=== PATIENT | male | born 1950 | race Two or more races ===

== ENCOUNTER 2017-02-25 01:30 | Emergency (ER) | payer OTHER ==
[~2017-02-25] VITALS: Ht 157.5 cm; Wt 66.2 kg
[2017-02-25 01:43] VITALS: BP 143/76
--- NOTE | 2017-02-25 02:04 | Emergency Room Report ---
History of Present Illness General Chief Complaint: Pain Source: Patient Present Illness HPI Patient present with complaints of pain to the left knee reports that on Friday after work he noticed some discomfort to the knee Next date is when he noticed more pain Initially there is report of pain with movement and bearing weight However during the examination while the patient has leg in neutral position he has episodes of acute pain Denies any fall or trauma Patient works in maintenance Denies any fevers or chills reports that he had some meniscal discomfort in the knee 3 years ago which has resolved a long time ago Allergies: Coded Allergies: No Known Allergies (Unverified , 02/25/17) Patient History Past Medical History: see triage record Pertinent Family History: none Reviewed Nursing Documentation: PMH: Agreed, PSxH: Agreed Nursing Documentation-PMH Hx Hypertension: Yes Hx Diabetes: Yes Review of Systems All Other Systems: negative except mentioned in HPI Physical Exam Vital Signs Date Time Temp Pulse Resp B/P (MAP) Pulse Ox O2 Delivery O2 Flow Rate FiO2 02/25/17 01:35 97.9 68 20 143/76 99 Room Air Sp02 EP Interpretation: reviewed, normal General Appearance: well appearing, no apparent distress Head: normocephalic, atraumatic Eyes: bilateral eye PERRL, bilateral eye EOMI ENT: hearing grossly normal, normal pharynx, TMs + canals normal, uvula midline Neck: full range of motion, supple, no meningismus, no bony tend Respiratory: lungs clear, normal breath sounds, no rhonchi, no respiratory distress, no retraction, no accessory muscle use Cardiovascular #1: normal peripheral pulses, regular rate, rhythm, no edema, no gallop, no JVD, no murmur Gastrointestinal: normal bowel sounds, non tender, soft, no mass, no organomegaly, non-distended, no guarding, no hernia, no pulsatile mass, no rebound Genitourinary: no CVA tenderness Musculoskeletal: other - No signs of any edema or erythema, patella is freely mobile, no signs of instability in anterior/posterior draw, patient subjectively intermittently has episodes of sharp pain reports deep in the knee Neurologic: oriented x3, responsive, 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, motor strength/ tone normal, sensory intact Psychiatric: mood/affect normal Skin: normal color, no rash, warm/dry, palpation normal Lymphatic: normal inspection, no adenopathy Procedures Splinting Splinting : Consent: Verbal Pre-Proc Neuro Vasc Exam: normal Post-Proc Neuro Vasc Exam: normal Patient Tolerated: Well Complications: None Progress Ju[place]ino wrap was applied to the patient's left knee patient was provided with crutches Medical Decision Making Diagnostic Impression: Primary Impression: Knee pain, acute ER Course Multiple differentials considered, orthopedic, neurological, vascular pathology considered Patient's x-ray imaging does show some calcified vasculature however no obvious acute bony abnormalities No signs of any edema or swelling in the lower extremity neurovascularly intact at this time the patient stable for close followup Other X-Ray Diagnostic Results Other X-Ray Diagnostic Results : X-Ray ordered: left knee # of Views/Limited Vs Complete: 3 View Indication: Pain EP Interpretation: Yes Interpretation: no dislocation, no soft tissue swelling, no fractures Impression: No acute disease Electronically Signed by: Isac Godfrey DO Last Vital Signs Date Time Temp Pulse Resp B/P (MAP) Pulse Ox O2 Delivery O2 Flow Rate FiO2 02/25/17 01:43 97.9 68 20 143/76 99 Room Air Status: improved Disposition: HOME, SELF-CARE Condition: Improved Scripts Acetaminophen With Codeine (T#3) (TYLENOL #3 TAB*) Y Tab 1 TAB ORAL Q8H Y for For Pain, #12 TAB Prov: ISAC GODFREY D.O. 02/25/17 Additional Instructions: Patient is provided with the discharge instructions notified to follow up with primary doctor in the next 2-3 days otherwise return to the er with any worsening symptoms. Please note that this report is being documented using [employer] technology. This can lead to erroneous entry secondary to incorrect interpretation by the dictating instrument. ISAC GODFREY D.O. Feb 25, 2017 02:04
[2017-02-25] MEDS ORDERED: Norco 5mg/325mg tab ORAL ONE (02:15)
[2017-02-25] MEDS ORDERED: ACETAMINOPHEN-1 EAC1 ORAL (02:47)
[2017-02-25 02:52] VITALS: BP 143/76
--- NOTE | 2017-02-25 12:27 | Diagnostic Imaging Report ---
Indication: Pain 3 views of the left knee were obtained. Findings: No acute fracture, malalignment, or joint effusion are identified. Joint space is relatively well-maintained. Arterial calcifications are extensive. Impression: Negative for acute injury Atherosclerotic disease
== END 2017-02-25 02:52 | disposition home or self-care (01) ==
LOC: EMR 02:05
DX: M25.562 Pain in left knee (principal); I10 Essential (primary) hypertension; E11.9 Type 2 diabetes mellitus without complications
CPT/HCPCS: 99284